=== PATIENT | male | born 1970 | race Caucasian/White ===

== ENCOUNTER 2018-09-13 09:09 | Emergency (ER) | payer MEDICARE ==
--- NOTE | 2018-09-13 09:47 | ERPHSYRPT ---
- History of Present Illness Time Seen by Provider: 09/13/18 09:30 Source: patient Exam Limitations: no limitations Patient Subjective Stated Complaint: Laying in bed last night and rolled over and felt something "tear" in the middle back of neck Triage Nursing Assessment: Pt repots laying in bed last night and rolled over and felt something "tear" in the posterior medial neck, able to move only a few centimeters in each direction, tender with pressure but feels better with some pressure, denies injury, rates pain 8/10, pulses normal, vitals wnl, normal gait Physician History: 47 y/o white male presents with left neck pain. no trauma from fall or direct blow. however, he states during the night he rolled over and there was a tearing sensation in the left post neck. he woke up with neck pain into his neck. Timing/Duration: today Severity: moderate Modifying Factors: Improves With: immobilization (improves), movement (hurts to move) Allergies/Adverse Reactions: No Known Drug Allergies Allergy (Verified 09/13/18 09:24) Home Medications: Ropinirole HCl [Requip] 2 mg PO HS 10/11/14 [History] Albuterol Common Canister [Proventil Common Canister] 2 puff IH Q4HPRN PRN 09/24/15 [History] Fluticasone/Umeclidin/Vilanter [Trelegy Ellipta 100-62.5-25] 1 puff PO UD [History] Furosemide 20 mg [Lasix 20 mg] 20 mg PO DAILY 09/13/18 [History] Nebivolol HCl [Bystolic] 20 mg PO DAILY 09/13/18 [History] Omeprazole 40 mg PO DAILY 09/13/18 [History] Spironolactone 25 mg [Aldactone 25 MG] 25 mg PO DAILY 09/13/18 [History] Sucralfate 1 gm PO QID 09/13/18 [History] Hx Tetanus, Diphtheria Vaccination/Date Given: Yes Hx Influenza Vaccination/Date Given: No Hx Pneumococcal Vaccination/Date Given: No - Review of Systems Constitutional: No Symptoms Eyes: No Symptoms Ears, Nose, & Throat: No Symptoms Respiratory: No Symptoms Cardiac: No Symptoms Abdominal/Gastrointestinal: No Symptoms Genitourinary Symptoms: No Symptoms Musculoskeletal: Neck Pain (left side) Skin: No Symptoms Neurological: No Symptoms Psychological: No Symptoms Endocrine: No Symptoms Hematologic/Lymphatic: No Symptoms Immunological/Allergic: No Symptoms All Other Systems: Reviewed and Negative - Past Medical History Pertinent Past Medical History: Yes Neurological History: No Pertinent History ENT History: No Pertinent History Cardiac History: Other Respiratory History: Other Musculoskeletal History: Degenerative Disk Disease, Other GI Medical History: No Pertinent History History: No Pertinent History Psycho-Social History: No Pertinent History Male Reproductive Disorders: No Pertinent History Other Medical History: 47% of lungs left with spots all over them. thickening of heart wall - Past Surgical History Past Surgical History: Yes Neuro Surgical History: No Pertinent History Cardiac: No Pertinent History Respiratory: No Pertinent History Gastrointestinal: No Pertinent History Genitourinary: No Pertinent History Musculoskeletal: Orthopedic Surgery Male Surgical History: No Pertinent History Other Surgical History: rt shoulder rotator cuff, right hand, rt leg - Social History Smoking Status: Never smoker Exposure to second hand smoke: No Drug Use: none Patient Lives Alone: No Significant Family History: [id number] - Nursing Vital Signs Nursing Vital Signs: Initial Vital Signs Temperature 97.5 F 09/13/18 09:14 Pulse Rate 77 09/13/18 09:14 Blood Pressure 127/81 09/13/18 09:14 O2 Sat by Pulse Oximetry 99 09/13/18 09:14 Pain Scale Pain Intensity [Posterior 8 Medial Neck] Pain Intensity 8 - Physical Exam General Appearance: moderate distress, alert, obese Eye Exam: PERRL/EOMI Ears, Nose, Throat Exam: normal ENT inspection, moist mucous membranes Neck Exam: normal inspection, limited range of motion (secondary to left side posterior neck) Respiratory Exam: lungs clear, No chest tenderness, No respiratory distress Gastrointestinal/Abdomen Exam: soft, No tenderness Rectal Exam: not done Back Exam: normal inspection, normal range of motion, No CVA tenderness, No vertebral tenderness Extremity Exam: normal inspection, normal range of motion, pelvis stable Neurologic Exam: alert, oriented x 3, cooperative, 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 II-XII nml as tested, normal mood/affect, nml cerebellar function, nml station & gait Skin Exam: normal color, warm, dry Lymphatic Exam: No adenopathy SpO2 Interpretation: normal SpO2: 99 O2 Delivery: Room Air - Course Nursing assessment & vital signs reviewed: Yes - Progress Progress: unchanged, pain not gone completely, re-examined Counseled pt/family regarding: diagnosis, need for follow-up - Departure Departure Disposition: Home Clinical Impression: Neck muscle strain Condition: Stable Critical Care Time: No Referrals: KATHIA MARTINEZ MD [Primary Care Provider] - Additional Instructions: follow up with primary doctor for further management Prescriptions: Carisoprodol 350 mg [Soma 350 mg] 350 mg PO Q8H PRN PRN #10 tablet PRN Reason: Muscle Spasms Methylprednisolone Packet [Medrol Dosepack] 4 mg PO UD #1 packet
[2018-09-13] MEDS ORDERED: PERCOCET TABLET 5/325MG PO STA (09:52)
[2018-09-13] MEDS ORDERED: Ativan 1 MG PO ONE (09:53)
[2018-09-13] MEDS ORDERED: DELTASONE 20 MG PO ONE (09:53)
[2018-09-13] MEDS ORDERED: PERCOCET TABLET 5/325MG ONE (09:56)
[2018-09-13] MEDS ORDERED: Ativan 1 MG ONE (09:56)
[2018-09-13] MEDS ORDERED: DELTASONE 20 MG ONE (09:56)
[2018-09-13 10:10] VITALS: BP 109/77; PULSE 66; O2SAT 98
== END 2018-09-13 10:21 | disposition home or self-care (01) ==
LOC: ED 09:09
DX: S16.1XXA Strain of muscle, fascia and tendon at neck level, initial encounter (principal); M54.2 Cervicalgia; X50.0XXA Overexertion from strenuous movement or load, initial encounter; Y93.89 Activity, other specified; Y92.003 Bedroom of unspecified non-institutional (private) residence as the place of occurrence of the external cause
CPT/HCPCS: 99283; A9270-GY